=== PATIENT | female | born 1965 | race Two or more races ===

== ENCOUNTER 2023-08-09 07:15 | Day surgery (SDC) | payer MEDICAID ==
[~2023-08-09] VITALS: Ht 157.5 cm; Wt 63.0 kg
[~2023-08-09 07:15] MED LIST: ACET-1304 PO; AMIO200T33 PO; APIX5TAB PO; ASPI-543 PO; ATOR40TA52 PO; CARV6.2551 PO; CLOP75TA28 PO; DAPA1TAB4 PO; DOCU250C12 PO; DULA1INJ SC; GABA-339 PO; IBUP-1456 PO; LEVO50TA7 PO; MAGN400T40 PO; METF-929 PO; OMEG-54 PO; RANO500T3 PO; SENN1TAB14 PO
[2023-08-09] MEDS ORDERED: ANGIOMAX 250 MG VIAL IV ONE (10:13)
[2023-08-09] MEDS ORDERED: MIDAZOLAM HCL 2MG/2ML 2ml VIAL (1mg/ml) ONE (10:13)
[2023-08-09] MEDS ORDERED: HEPARIN SODIUM (PORCINE) 5000 UNITS/ML 1ML VIAL ONE (10:13)
[2023-08-09] MEDS ORDERED: VERAPAMIL 2.5MG/ML INJ 2ML VIAL IV ONE (10:13)
[2023-08-09] MEDS ORDERED: fentaNYL CITRATE 100 MCG/2 ML VL ONE (10:13)
[2023-08-09] MEDS ORDERED: SODIUM CHL 0.9% 50 ML ONE (10:14)
[2023-08-09] MEDS ORDERED: IODIXANOL 320MG/ML 100ML BTL IV ONE ×2 (11:00→11:30)
[2023-08-09] MEDS ORDERED: CLOPIDOGREL 300 MG TAB ONE (11:22)
[2023-08-09] MEDS ORDERED: ASPirin 325 MG TAB ONE (11:43)
== END 2023-08-09 14:42 | disposition home or self-care (01) ==
LOC: CATH 07:15
PROVIDERS: ATTEND Internal Medicine Cardiovascular Disease
DX: I25.10 Atherosclerotic heart disease of native coronary artery without angina pectoris (principal); R06.09 Other forms of dyspnea; F17.210 Nicotine dependence, cigarettes, uncomplicated; E78.5 Hyperlipidemia, unspecified; I48.0 Paroxysmal atrial fibrillation; Z98.890 Other specified postprocedural states; Z79.899 Other long term (current) drug therapy
CPT/HCPCS: 93458; C1725; C1769; C1874; C1887; C9600; J0583; J1644; J2250; J3010; J7030; Q9967; 99152; 99153

== ENCOUNTER 2024-06-02 07:08 | Inpatient (IN) | payer MEDICAID ==
[2024-06-02] VITALS (40 sets, daily range): BP systolic 70–136; BP diastolic 42–97; PULSE 97–117; RESP 16–37; TEMP 98.2–101; O2SAT 94–100
[~2024-06-02] VITALS: Ht 157.5 cm; Wt 71.5 kg
[2024-06-02] MEDS ORDERED: NITROGLYCERIN 0.4 MG SL TAB SL PRN (10:45)
[2024-06-02] MEDS ORDERED: MORPHINE SULFATE INJ 2 MG/ml SYRG IV PRN (10:45)
[2024-06-02] MEDS: ACETAMINOPHEN 325 MG TAB PO PRN (10:57)
[2024-06-02] MEDS: CLOPIDOGREL BISULFATE 75 MG TAB PO ONE (10:57)
[2024-06-02] MEDS: DOCUSATE SOD 100 MG CAP PO ONE (11:00)
[2024-06-02] MEDS: AMIODARONE HCL 200 MG TAB PO ONE (11:00)
[2024-06-02] MEDS ORDERED: DEXTROSE (50%) 50ML SYRG IV PRN (11:00)
[2024-06-02] MEDS: ASPirin 81 mg TAB PO ONE (11:26)
[2024-06-02] MEDS ORDERED: NOREPINEPHRINE 8 MG/250ML KIT 250 ML IV SCH (12:00)
[2024-06-02] MEDS ORDERED: SODIUM CHLORIDE 0.9% 1,000 ML IV SCH (12:00)
[2024-06-02 12:16] LABS: Hematocrit 36.6 % (36.0-46.0); Hemoglobin 12.3 g/dL (12.2-16.2); Mean Corpuscular Hemoglobin 31.9 pg (28.0-32.0); Mean Corpuscular Hgb Conc. 33.4 g/dL (32.0-36.0); Mean Corpuscular Volume 95.4 fL (80.0-100.0); Platelet Count (auto) 169 10^3/uL (140-450); Red Blood Cells 3.84 10^6/uL (4.0-5.20); Red Cell Distribution Width 14.9 % (11.8-14.3); White Blood Cell 4.9 10^3/uL (4.4-10.8)
[2024-06-02] MEDS: HEPARIN DRIP/D5W 100UNITS/ML 250 ML IV SCH (12:16)
[2024-06-02] MEDS: PIPERACILLIN-TAZOB 3.375GM 100 ML IV ONE (12:16)
[2024-06-02 12:20] LABS: Urine Bacteria FEW /hpf (None Seen); Urine Blood 2+ /uL (Negative); Urine Mucus FEW (None Seen); Urine Protein, UAD 1+ (Negative); Urine Specific Gravity 1.022 (1.001-1.035); Urine Urobilinogen Normal (Negative); Urine WBC 102 /hpf (0 - 5); Urine WBC Clumps PRESENT /hpf (None Seen); Urine pH 5.5 (5.0-9.0)
[2024-06-02 12:20] LABS: Chloride 108 mmol/L (98-107); Potassium 3.4 mmol/L (3.5-5.1); Sodium 139 mmol/L (136-145)
[2024-06-02 12:21] LABS: Anion Gap 10 (5-15); Carbon Dioxide 21 mmol/L (20-31)
[2024-06-02 12:22] LABS: Calcium 8.1 mg/dL (8.7-10.4)
[2024-06-02 12:24] LABS: Basophils % (manual) 0 (0.0-2.0); Blast Cells 0; Eosinophils % (manual) 0 (0-7); Metamyelocytes % 0; Myelocytes % 0; Promyelocytes % 0; Reactive Lymphocytes 0
[2024-06-02 12:24] LABS: Urine Clarity Cloudy (Clear); Urine Color Yellow (Yellow)
[2024-06-02 12:26] LABS: BUN/Creatinine Ratio 11.5 (10.0-20.0); Blood Urea Nitrogen 12 mg/dL (9-23); Glucose 259 mg/dL (74-106)
[2024-06-02 12:36] LABS: COVID19 ANTIGEN SOFIA FIA NEGATIVE (NEGATIVE); Rapid Influenza A Negative (Negative); Rapid Influenza B Negative (Negative)
[2024-06-02 12:37] LABS: INR 1.16 (0.9-1.15); Partial Thromboplastin Time 30.5 SEC (24.5-34.5); Prothrombin Time 12.2 sec (9.3-11.8)
[2024-06-02 12:52] LABS: Anisocytosis Slight; Band Neutrophils % (manual) 8; Lymphocytes % (manual) 5 (10.0-50.0); Monocytes % (manual) 1 (0-12); Platelet Estimate Adequate
[2024-06-02 13:42] LABS: Amphetamine Screen, Urine Neg (NEGATIVE); Barbiturate Scree,Urine Neg (NEGATIVE); Benzodiazephine Screen, Urine Neg (NEGATIVE); Cannabinoid Screen, Urine Neg (NEGATIVE); Cocaine Screen, Urine Neg (NEGATIVE); Opiate Scree,Urine Neg (NEGATIVE); Phencyclidine Screen, Urine Neg (NEGATIVE)
[2024-06-02] MEDS: NOREPINEPHRINE 8 MG/250ML KIT 250 ML IV SCH (13:45)
[2024-06-02] MEDS: NOREPINEPHRINE 8 MG/250ML KIT 250 ML IV ONE (13:46)
[2024-06-02 14:13] LABS: Lactic Acid w/Reflex 4.7 mmol/L (0.4-2.0)
[2024-06-02] MEDS: HEPARIN SODIUM (PORCINE) 5000 UNITS/ML 1ML VIAL ONE (14:32)
[2024-06-02] MEDS: fentaNYL CITRATE 100 MCG/2 ML VL ONE (14:33)
[2024-06-02] MEDS: IODIXANOL 320MG/ML 100ML BTL IV ONE (14:33)
[2024-06-02] MEDS: VERAPAMIL 2.5MG/ML INJ 2ML VIAL IV ONE (14:33)
[2024-06-02] MEDS: MIDAZOLAM HCL 2MG/2ML 2ml VIAL (1mg/ml) ONE (14:33)
[2024-06-02] MEDS: HEPARIN IN NS 1000Units/500mL 1,500 ML ONE (14:33)
[2024-06-02] MEDS: LIDOCAINE 2%HCL (LOCAL ANESTH.) INJ 20ML MDV ONE (14:33)
[2024-06-02] MEDS: SODIUM CHL 0.9% 0 ML ONE (14:34)
[2024-06-02] MEDS: ANGIOMAX 250 MG VIAL IV ONE (14:34)
[2024-06-02] MEDS: ACCU-CHEK COMFORT CURVE STRIP VI SCH (14:42)
[2024-06-02] MEDS: InsuLIN REG 1unit/0.01ml Soln (100units/ml) SC SCH (14:42)
[2024-06-02] MEDS: SODIUM CHLORIDE 0.9% 1,000 ML IV SCH (14:45)
[2024-06-02 14:55] LABS: Base Excess -6.6 mmol/L (-2.0-3.0)
[2024-06-02 16:42] LABS: INR 1.16 (0.9-1.15); Partial Thromboplastin Time 53.1 SEC (24.5-34.5); Prothrombin Time 12.2 sec (9.3-11.8)
[2024-06-02] MEDS: POTASSIUM CHL 20 Meq TABLET PO ONE (17:11)
[2024-06-02] MEDS: LEVOTHYROXINE SODIUM 50 MCG TAB PO ONE (17:11)
[2024-06-02] MEDS: VANCOMYCIN 1GM/250ML 200 ML IV ONE (17:26)
[2024-06-02 18:44] LABS: INR 1.19 (0.9-1.15); Partial Thromboplastin Time 39.4 SEC (24.5-34.5); Prothrombin Time 12.5 sec (9.3-11.8)
[2024-06-02] MEDS: PIPERACILLIN-TAZOB 3.375GM 100 ML IV SCH (21:45)
[2024-06-02] MEDS: ATORVASTATIN 20 MG TAB PO SCH (21:46)
[2024-06-02] MEDS: DOCUSATE SOD 100 MG CAP PO SCH (21:47)
[2024-06-02] MEDS: VENLAFAXINE HCL 37.5MG TABLET PO SCH (21:47)
[2024-06-02] MEDS ORDERED: CARVEDILOL 3.125 MG TAB PO SCH (22:00)
[2024-06-03] VITALS (96 sets, daily range): BP systolic 76–176; BP diastolic 43–147; PULSE 81–127; RESP 15–32; TEMP 98.7–100.5; O2SAT 85–100
[2024-06-03 03:58] LABS: Basophils # (auto) 0 10 ^3/uL (0-0.2); Basophils % (auto) 0.2 % (0.0-2.0); Eosinophils # (auto) 0 10 ^3/uL (0-0.8); Hematocrit 39.5 % (36.0-46.0); Lymphocytes # (auto) 0.9 10 ^3/uL (0.4-5.4); Lymphocytes % (auto) 7.5 % (10.0-50.0); Monocytes # (auto) 0.4 10 ^3/uL (0-1.3); Monocytes % (auto) 3.1 % (0.0-12.0); Neutrophils # (auto) 10.9 10 ^3/uL (1.6-8.6); Neutrophils % (auto) 89.2 % (37.0-80.0); Nucleated Red Blood Cells % 0.1 %; Platelet Count (auto) 131 10^3/uL (140-450); Red Blood Cells 4.07 10^6/uL (4.0-5.20); Red Cell Distribution Width 15.2 % (11.8-14.3); White Blood Cell 12.2 10^3/uL (4.4-10.8)
[2024-06-03 04:15] LABS: Alanine Aminotransferase 44 U/L (7-40); Albumin 3.3 g/dL (3.2-4.8); Alkaline Phosphatase 77 U/L (46-116); Anion Gap 10 (5-15); Aspartate Aminotransferase 90 U/L (13-40); BUN/Creatinine Ratio 14.1 (10.0-20.0); Blood Urea Nitrogen 13 mg/dL (9-23); Calcium 8.1 mg/dL (8.7-10.4); Carbon Dioxide 18 mmol/L (20-31); Chloride 110 mmol/L (98-107); Glucose 245 mg/dL (74-106); Sodium 138 mmol/L (136-145)
[2024-06-03 04:16] LABS: Bilirubin, Total 0.4 mg/dL (0.2-1.0); Total Protein 5.7 g/dL (5.7-8.2)
[2024-06-03] MEDS: LEVOTHYROXINE SODIUM 50 MCG TAB PO SCH (06:03)
[2024-06-03] MEDS: ASPirin 81 mg TAB PO SCH (09:26)
[2024-06-03] MEDS ORDERED: AMIODARONE HCL 200 MG TAB PO SCH (10:00)
[2024-06-03] MEDS ORDERED: DEXTROSE (50%) 50ML SYRG IV PRN (11:45)
[2024-06-03] MEDS: MEROPENEM 1GM IVPB 50 ML IV ONE (12:16)
[2024-06-03] MEDS: SODIUM CHLORIDE 0.9% 1,000 ML IV SCH (12:19)
[2024-06-03] MEDS: CLOPIDOGREL BISULFATE 75 MG TAB PO SCH (12:35)
[2024-06-03] MEDS: MEROPENEM 1GM IVPB 50 ML IV SCH (14:23)
[2024-06-03] MEDS: ACCU-CHEK COMFORT CURVE STRIP VI SCH (16:24)
[2024-06-03] MEDS: ONDANSETRON HCL 4 MG/2 ML VIAL IV PRN (16:24)
[2024-06-03] MEDS: InsuLIN REG 1unit/0.01ml Soln (100units/ml) SC SCH ×2 (16:32→22:00)
[2024-06-03] MEDS: INSULIN LANTUS (GLARGINE) 1 /0.01ml (100units/ml) SC SCH (22:00)
[2024-06-03] MEDS ORDERED: INSULIN LANTUS (GLARGINE) 1 /0.01ml (100units/ml) SC SCH (22:00)
[2024-06-04] VITALS (52 sets, daily range): BP systolic 101–140; BP diastolic 56–89; PULSE 67–112; RESP 16–37; TEMP 97.8–100.2; O2SAT 89–99
[2024-06-04 05:03] LABS: Alanine Aminotransferase 138 U/L (7-40); Albumin 3.5 g/dL (3.2-4.8); Alkaline Phosphatase 129 U/L (46-116); Anion Gap 7 (5-15); Aspartate Aminotransferase 211 U/L (13-40); BUN/Creatinine Ratio 18.5 (10.0-20.0); Bilirubin, Total 0.6 mg/dL (0.2-1.0); Blood Urea Nitrogen 12 mg/dL (9-23); Calcium 8.8 mg/dL (8.7-10.4); Carbon Dioxide 20 mmol/L (20-31); Chloride 109 mmol/L (98-107); Glucose 176 mg/dL (74-106); Potassium 3.6 mmol/L (3.5-5.1); Sodium 136 mmol/L (136-145); Total Protein 5.9 g/dL (5.7-8.2)
[2024-06-04 09:37] LABS: Basophils # (auto) 0 10 ^3/uL (0-0.2); Basophils % (auto) 0.5 % (0.0-2.0); Eosinophils # (auto) 0.1 10 ^3/uL (0-0.8); Eosinophils % (auto) 1.9 % (0.0-7.0); Hematocrit 38.2 % (36.0-46.0); Hemoglobin 12.7 g/dL (12.2-16.2); Lymphocytes # (auto) 0.6 10 ^3/uL (0.4-5.4); Lymphocytes % (auto) 9.9 % (10.0-50.0); Mean Corpuscular Hgb Conc. 33.2 g/dL (32.0-36.0); Mean Corpuscular Volume 93.4 fL (80.0-100.0); Monocytes # (auto) 0.1 10 ^3/uL (0-1.3); Monocytes % (auto) 1.1 % (0.0-12.0); Neutrophils # (auto) 4.9 10 ^3/uL (1.6-8.6); Neutrophils % (auto) 86.6 % (37.0-80.0); Nucleated Red Blood Cells % 0.2 %; Platelet Count (auto) 84 10^3/uL (140-450); Red Blood Cells 4.09 10^6/uL (4.0-5.20); Red Cell Distribution Width 15.3 % (11.8-14.3); White Blood Cell 5.6 10^3/uL (4.4-10.8)
[2024-06-04 10:50] LABS: Large Platelets FEW; Platelet Estimate Decrea
[2024-06-04] MEDS: FUROSEMIDE 20 MG/2 ML VIAL IV ONE (12:52)
[2024-06-04] MEDS: POTASSIUM CHL 20 Meq TABLET PO ONE (12:53)
[2024-06-05] VITALS (17 sets, daily range): BP systolic 96–133; BP diastolic 60–78; PULSE 75–108; RESP 16–18; TEMP 98.5–100.3; O2SAT 91–94
[2024-06-05 05:20] LABS: Basophils # (auto) 0 10 ^3/uL (0-0.2); Basophils % (auto) 0.3 % (0.0-2.0); Eosinophils # (auto) 0 10 ^3/uL (0-0.8); Eosinophils % (auto) 0.6 % (0.0-7.0); Hematocrit 34.4 % (36.0-46.0); Hemoglobin 11.8 g/dL (12.2-16.2); Lymphocytes # (auto) 1.1 10 ^3/uL (0.4-5.4); Lymphocytes % (auto) 22.6 % (10.0-50.0); Mean Corpuscular Hemoglobin 31.8 pg (28.0-32.0); Mean Corpuscular Hgb Conc. 34.4 g/dL (32.0-36.0); Mean Corpuscular Volume 92.4 fL (80.0-100.0); Monocytes # (auto) 0.2 10 ^3/uL (0-1.3); Monocytes % (auto) 3.5 % (0.0-12.0); Neutrophils # (auto) 3.6 10 ^3/uL (1.6-8.6); Nucleated Red Blood Cells % 0.2 %; Platelet Count (auto) 90 10^3/uL (140-450); Red Blood Cells 3.73 10^6/uL (4.0-5.20); Red Cell Distribution Width 15.1 % (11.8-14.3); White Blood Cell 4.9 10^3/uL (4.4-10.8)
[2024-06-05 05:28] LABS: Alanine Aminotransferase 117 U/L (7-40); Albumin 3.6 g/dL (3.2-4.8); Alkaline Phosphatase 188 U/L (46-116); Anion Gap 8 (5-15); Aspartate Aminotransferase 125 U/L (13-40); BUN/Creatinine Ratio 17.2 (10.0-20.0); Bilirubin, Total 0.6 mg/dL (0.2-1.0); Blood Urea Nitrogen 10 mg/dL (9-23); Calcium 9.1 mg/dL (8.7-10.4); Carbon Dioxide 23 mmol/L (20-31); Chloride 106 mmol/L (98-107); Glucose 160 mg/dL (74-106); Magnesium 1.6 mg/dL (1.6-2.6); Potassium 3.7 mmol/L (3.5-5.1); Sodium 137 mmol/L (136-145)
[2024-06-05] MEDS: CARVEDILOL 3.125 MG TAB PO SCH (21:36)
[2024-06-06] VITALS (7 sets, daily range): BP systolic 95–128; BP diastolic 45–77; PULSE 61–110; RESP 16–21; TEMP 98–100.7; O2SAT 90–96
[2024-06-06 07:17] LABS: Hematocrit 36.8 % (36.0-46.0); Hemoglobin 12.7 g/dL (12.2-16.2); Mean Corpuscular Hemoglobin 31.8 pg (28.0-32.0); Mean Corpuscular Hgb Conc. 34.6 g/dL (32.0-36.0); Red Cell Distribution Width 15.3 % (11.8-14.3); White Blood Cell 3.8 10^3/uL (4.4-10.8)
[2024-06-06 07:19] LABS: Platelet Count (auto) 76 10^3/uL (140-450)
[2024-06-06 07:22] LABS: Basophils % (manual) 0 (0.0-2.0); Blast Cells 0; Metamyelocytes % 0; Myelocytes % 0; Promyelocytes % 0; Reactive Lymphocytes 0
[2024-06-06 07:34] LABS: Alanine Aminotransferase 74 U/L (7-40); Alkaline Phosphatase 211 U/L (46-116); Anion Gap 8 (5-15); BUN/Creatinine Ratio 22.6 (10.0-20.0); Blood Urea Nitrogen 12 mg/dL (9-23); Carbon Dioxide 23 mmol/L (20-31); Chloride 103 mmol/L (98-107); Glucose 220 mg/dL (74-106); Potassium 3.4 mmol/L (3.5-5.1); Sodium 134 mmol/L (136-145)
[2024-06-06 07:35] LABS: Albumin 3.3 g/dL (3.2-4.8); Aspartate Aminotransferase 50 U/L (13-40); Bilirubin, Total 0.8 mg/dL (0.2-1.0); Total Protein 5.8 g/dL (5.7-8.2)
[2024-06-06 08:56] LABS: Band Neutrophils % (manual) 9; Eosinophils % (manual) 1 (0-7); Lymphocytes % (manual) 7 (10.0-50.0); Monocytes % (manual) 3 (0-12)
[2024-06-06 08:57] LABS: Platelet Estimate Decreased
[2024-06-06] MEDS: levoFLOXacin 500MG 100 ML IV SCH (10:11)
[2024-06-06] MEDS: AMIODARONE HCL 200 MG TAB PO SCH (10:14)
[2024-06-06] MEDS: POTASSIUM CHL 20 Meq TABLET PO ONE (14:40)
[2024-06-06] MEDS ORDERED: CEFD300C2 PO (15:01)
== END 2024-06-06 16:50 | disposition home or self-care (01) | DRG 720 ==
LOC: TELE 09:06 → TELE-CENTR 09:30 → ICU WEST 13:20 → TELE-WESTW 06-04 16:25
PROVIDERS: ADMIT Nurse Practitioner Family; ATTEND Internal Medicine
PROC: 4A023N7 Measurement of Cardiac Sampling and Pressure, Left Heart, Percutaneous Approach (ICD-10-PCS; principal; 2024-06-02)
PROC: B211YZZ Fluoroscopy of Multiple Coronary Arteries using Other Contrast (ICD-10-PCS; 2024-06-02)
DX: A41.9 Sepsis, unspecified organism (principal); R65.21 Severe sepsis with septic shock; I21.A1 Myocardial infarction type 2; I50.41 Acute combined systolic (congestive) and diastolic (congestive) heart failure; D69.6 Thrombocytopenia, unspecified; I42.9 Cardiomyopathy, unspecified; N39.0 Urinary tract infection, site not specified; E11.9 Type 2 diabetes mellitus without complications; Z20.822 Contact with and (suspected) exposure to COVID-19; B96.20 Unspecified Escherichia coli [E. coli] as the cause of diseases classified elsewhere; E03.9 Hypothyroidism, unspecified; E78.5 Hyperlipidemia, unspecified; I48.91 Unspecified atrial fibrillation; F32.A Depression, unspecified; I25.10 Atherosclerotic heart disease of native coronary artery without angina pectoris; B96.1 Klebsiella pneumoniae [K. pneumoniae] as the cause of diseases classified elsewhere; I11.0 Hypertensive heart disease with heart failure; Z90.710 Acquired absence of both cervix and uterus; Z82.49 Family history of ischemic heart disease and other diseases of the circulatory system; Z87.442 Personal history of urinary calculi; Z79.82 Long term (current) use of aspirin; Z95.5 Presence of coronary angioplasty implant and graft
CPT/HCPCS: 36415; 36600; 71045; 76775; 80048; 80053; 80307; 81001; 82805; 82962; 83036; 83605; 83735; 83880; 84075; 84443; 84484; 85007; 85025; 85027; 85379; 85610; 85730; 87040; 87077; 87081; 87086; 87088; 87186; 87426; 87804; 93005; 93306; 93458; 97163; 99152; G0378; J1815; J1956; J2185; J2250; J2405; J2543; Q9967